=== PATIENT | female | born 1960 | race Caucasian/White ===

== ENCOUNTER 2018-08-04 06:35 | Day surgery (SDC) | payer OTHER ==
[2018-07-25 13:55] VITALS: BMI 40.0
[2018-08-04] MEDS ORDERED: VASOPRESSIN 20 UNITS/ML VIAL IV ONE ×2 (07:37→07:39)
[2018-08-04] MEDS ORDERED: MIDAZOLAM HCL 2 MG/2 ML SINGLE DOSE VIAL ONE ×2 (08:53→09:07)
[2018-08-04] MEDS ORDERED: PROPOFOL 20 ML ONE ×3 (09:14)
[2018-08-04] MEDS ORDERED: LIDOCAINE 1%/EPI 1:100000 (20 ML MULTI DOSE VIAL) ONE (09:31)
[2018-08-04] MEDS ORDERED: LIDOCAINE 1%/EPI 1:100000 (20 ML MULTI DOSE VIAL) IJ ONE ×2 (09:35→10:14)
[2018-08-04] MEDS ORDERED: ONDANSETRON 4 MG/2 ML VIAL IVPUSH PRN (10:35)
[2018-08-04] MEDS ORDERED: oxyCODONE HCL 5 MG TABLET PO PRN (10:35)
[2018-08-04] MEDS ORDERED: PROMETHAZINE HCL 25 MG/1 ML VIAL IVPB PRN (10:35)
[2018-08-04] MEDS ORDERED: LACTATED RINGERS SOLUTION 1,000 ML IV SCH (10:45)
--- NOTE | 2018-08-04 11:38 | OP ---
Operative Note - Note: Operative Date: 08/04/18 Pre-Operative Diagnosis: stress urinary incontinence Operation: transvaginal urethropexy utilizing obdurator approach Post-Operative Diagnosis: Same as Pre-op Surgeon: Abhijeet Webster Anesthesia: General Estimated Blood Loss (mls): 20 Drains & Tubes with Location: vaginal packing placed with beck to straight drainage
[2018-08-04 13:49] VITALS: BP 111/71; PULSE 64; TEMP 98
--- NOTE | 2018-08-24 18:12 | OP ---
DATE OF OPERATION: 08/04/2018 PREOPERATIVE DIAGNOSIS: Stress urinary incontinence. POSTOPERATIVE DIAGNOSIS: Stress urinary incontinence. PROCEDURE: Transvaginal urethropexy utilizing obturator approach for sling placement. ATTENDING: Guy Kenyon MD ANESTHESIA: General. OPERATION: The patient was brought in the operating room, placed in the supine position on the operating room table. Anesthesia was administered as was preoperative antibiotics. The patient was then placed in the dorsal lithotomy position and prepped and draped in the usual sterile manner. A Brizuela catheter was placed into the bladder. Stitches in the labia majora were placed and the labia retracted laterally on both sides. At this point, incision was made overlying the urethra. The vaginal mucosa was dissected free of the urethra. The urethra was exposed. Utilizing the index finger, the lateral aspects of the bladder were freed. At this point, incision was made lateral to the labia and the passer was placed and rotated around the inferior aspect of the pubis and brought out lateral to the urethra. This was performed on the opposite side as well. The sling was then placed in an appropriate position. There was no tension placed on the urethra. The extra sling material was cut at the level of the skin. Stitches were placed at both lateral incisions. At this point, interrupted 3-0 Vicryl stitches were used to reconstruct the anterior vagina. Excellent hemostasis was obtained. Vaginal packing was left in place. The patient was also left to Brizuela catheter. It must be noted that cystoscopy was performed after placement of the sling and there was no evidence of passage of the sling through the bladder. Patient tolerated the procedure very well, no complications were noted. Disposition of the patient was to recovery room. GUY KENYON M.D. [id number]
== END 2018-08-04 13:15 | disposition home or self-care (01) ==
LOC: JASU-SURG 06:35
PROVIDERS: ATTEND Urology
PROC: 0TSD0ZZ Reposition Urethra, Open Approach (ICD-10-PCS; principal; 2018-08-04 08:00)
DX: N39.3 Stress incontinence (female) (male) (principal)
CPT/HCPCS: 57288; C1771; 94760

== ENCOUNTER 2022-07-26 07:44 | Day surgery (SDC) | payer OTHER ==
[2022-07-24 13:30] VITALS: BMI 38.9
[2022-07-26 09:32] VITALS: RESP 16
[2022-07-26] MEDS ORDERED: BUPIVACAINE HCL 100 ML ONE (09:36)
[2022-07-26] MEDS ORDERED: PROPOFOL 20 ML ONE (10:04)
[2022-07-26] MEDS ORDERED: MIDAZOLAM HCL 2 MG/2 ML SINGLE DOSE VIAL ONE (10:04)
[2022-07-26] MEDS ORDERED: LIDOCAINE HCL/PF 2% SDV 5ML VIAL ONE (10:05)
[2022-07-26] MEDS ORDERED: LIDOCAINE HCL 2% JELLY 11 ML TP ONE (10:05)
[2022-07-26] MEDS ORDERED: oxyCODONE HCL 5 MG TABLET PO PRN ×2 (11:18)
[2022-07-26] MEDS ORDERED: ONDANSETRON 4 MG/2 ML VIAL IVPUSH PRN (11:18)
[2022-07-26] MEDS ORDERED: ACETAMINOPHEN 325 MG TABLET (FP) PO PRN (11:18)
[2022-07-26] MEDS ORDERED: PROMETHAZINE HCL 25 MG/1 ML VIAL IVPUSH PRN (11:18)
[2022-07-26 12:09] VITALS: TEMP 97.7
[2022-07-26 12:49] VITALS: BP 130/85; PULSE 74
== END 2022-07-26 12:45 | disposition home or self-care (01) ==
LOC: FASU 07:44
PROVIDERS: ATTEND Orthopaedic Surgery
PROC: 0SBD4ZZ Excision of Left Knee Joint, Percutaneous Endoscopic Approach (ICD-10-PCS; 2022-07-26)
PROC: 0SBD4ZZ Excision of Left Knee Joint, Percutaneous Endoscopic Approach (ICD-10-PCS; principal; 2022-07-26 10:48)
DX: S83.242A Other tear of medial meniscus, current injury, left knee, initial encounter (principal); M17.12 Unilateral primary osteoarthritis, left knee; M65.862 Other synovitis and tenosynovitis, left lower leg; X58.XXXA Exposure to other specified factors, initial encounter; Y93.9 Activity, unspecified; Y92.9 Unspecified place or not applicable
CPT/HCPCS: 94760

== ENCOUNTER 2024-01-14 03:53 | Day surgery (SDC) | payer OTHER ==
[2024-01-09 12:16] VITALS: BMI 38.0
[2024-01-14 09:38] VITALS: RESP 16
[2024-01-14] MEDS ORDERED: ONDANSETRON 4 MG/2 ML VIAL ONE (12:02)
[2024-01-14] MEDS ORDERED: MIDAZOLAM HCL 2 MG/2 ML SINGLE DOSE VIAL ONE (12:03)
[2024-01-14] MEDS ORDERED: FENTANYL CITRATE/PF 50 MCG/ML VIAL ONE (12:03)
[2024-01-14 13:20] VITALS: BP 110/60; PULSE 62; TEMP 98
== END 2024-01-14 13:39 | disposition home or self-care (01) ==
LOC: JASU-SURG 03:53
PROVIDERS: ATTEND Urology
PROC: 0TF4XZZ Fragmentation in Left Kidney Pelvis, External Approach (ICD-10-PCS; principal; 2024-01-14 11:30)
DX: N20.0 Calculus of kidney (principal)